=== PATIENT | female | born 1970 | race Caucasian/White ===

== ENCOUNTER → 2017-03-07 | Outpatient (CLI) | payer BC ==
--- NOTE | 2017-03-07 10:04 | DIAGNOSTIC IMAGING REPORT ---
THYROID ULTRASONOGRAPHY CLINICAL HISTORY: Thyroid nodule COMPARISON STUDY: No previous studies for comparison. FINDINGS: The relevant of thyroid measures 41 x 14 x 18 mm. There is a partially circumscribed wider than tall 6 x 5 x 4 mm hypoechoic nodule within the midpole. A few additional tiny hypoechoic nodules are visualized. The left lobe measures 36 x 12 x 16 mm. IMPRESSION: 1. Subcentimeter right lobe thyroid nodules, the largest of which measures 6 x 5 x 4 mm. Electronically signed by: Nadeem Izaguirre M.D. 03/07/2017 10:02 AM Dictated Date/Time: 03/07/2017 10:00 AM
== END | disposition home or self-care (01) ==
LOC: C.ULTR 08:57
PROVIDERS: ATTEND Nurse Practitioner
DX: E04.2 Nontoxic multinodular goiter (principal)

== ENCOUNTER 2017-03-23 10:45 | Emergency (ER) | payer BC ==
[~2017-03-23] VITALS: Ht 167.6 cm; Wt 91.1 kg
[2017-03-23 10:49] VITALS: TEMP 37; Ht 167.6 cm; Wt 91.1 kg
[2017-03-23] MEDS ORDERED: MELO7.5T5 PO (11:09)
[2017-03-23] MEDS ORDERED: GABA-113 PO (11:09)
[2017-03-23] MEDS ORDERED: EFF75 PO (11:09)
[2017-03-23] MEDS ORDERED: TRAZ50TA35 PO (11:09)
[2017-03-23] MEDS ORDERED: BACL10TA PO (11:09)
[2017-03-23] MEDS ORDERED: PRT/20 PO (11:09)
[2017-03-23] MEDS ORDERED: CIPR-255 PO (11:13)
[2017-03-23] MEDS ORDERED: PRED50TA PO (11:19)
[2017-03-23 11:26] VITALS: BP 144/86; PULSE 90; O2SAT 99
--- NOTE | 2017-03-23 20:47 | EMERGENCY ROOM VISIT NOTE ---
History First contact with patient: 11:04 Chief Complaint: RASH Stated Complaint: ITCHY RASH THAT STARTED 1600 YESTERDAY History of Present Illness The patient is a 46 year old white female who presents to the Emergency Room with complaints of a pruritic rash on her arms, face, chest, and back, that all started yesterday. Symptoms started around 4 PM. No known contact. No change in soaps, lotions, detergents, pets, plants, or foods. She was crawling in some insulation for 5 days ago but had a long sleeve shirt on. She did not have any itchiness after that. No involvement of the legs. She has been using Benadryl without improvement. No fevers or chills. She denies any other cold symptoms. No involvement of the feet or the palms. There is involvement of the dorsum of her hands. No known ill contacts. No difficulty swallowing. She denies any pain, and just has itching. Review of Systems REVIEW OF SYSTEM: HEENT: No dizziness, visual problems, hearing loss, or tinnitus. There is no difficulty swallowing and no oral lesions are present. PULMONARY: No cough, shortness of breath, sputum production or hemoptysis. CARDIOVASCULAR: No chest pain, palpitations, shortness of breath or peripheral edema. GASTROINTESTINAL: No diarrhea, constipation, nausea, vomiting, or abdominal pain. GENITOURINARY: No dysuria, frequency, urgency or nocturia. NEUROLOGIC: No weakness, muscle tenderness, epilepsy or history of neurological problems. MUSCULOSKELETAL: No history of joint tenderness/swelling. No history of arthritis or arthralgias. SKIN: No prior rashes or lesions. PSYCHIATRIC: Positive history of depression and anxiety. ENDOCRINE: No history of diabetes, thyroid disorders, or abnormal hair growth. Past Medical/Surgical History Medical history: Significant for chronic back pain, osteoarthritis, anxiety, and depression Previous surgeries: None. Family History Noncontributory. Social History Smoking Status: Current Every Day Smoker Smokeless Tobacco Use: No Alcohol Use: occasionally Drug Use: none Marital Status: single Current/Historical Medications Scheduled Ciprofloxacin Hcl (Cipro), 500 MG PO BID Gabapentin (Neurontin), 150 MG PO BID Meloxicam (Mobic), 15 MG PO DAILY Pantoprazole (Protonix), 20 MG PO BID Prednisone (Prednisone), 50 MG PO DAILY Venlafaxine Hcl (Effexor), 75 MG PO DAILY Scheduled PRN Baclofen (Lioresal), 20 MG PO DIRECTED PRN for Muscle Spasms Trazodone Hcl (Trazodone), 50 MG PO HS PRN for Sleep Physical Exam Vital Signs Date Time Temp Pulse Resp B/P (MAP) Pulse Ox O2 Delivery O2 Flow Rate FiO2 03/23/17 11:26 90 20 144/86 99 03/23/17 10:49 37.0 90 20 144/86 99 Room Air Physical Exam Gen.: Well-developed, well-nourished, middle-aged white female, in no acute distress. Sitting on a bed. Alert and oriented. Skin:Warm and dry with good turgor. Erythematous macular rash present on her arms, chest, and back. It is both right and left of midline. Small pustules are present on the back. No vesicles present anywhere else. Macules do alban with pressure. No ecchymosis. No involvement of the palms of the hands or soles of the feet. The patient is not diaphoretic. No abrasions. Heart: Heart RRR. No MGR. Peripheral pulses are 2+. Lungs: Lungs are clear to auscultation. No crackles rhonchi or wheezing. Good air movement. The patient is able to take a deep breath. HEENT: Normocephalic atraumatic. Eyes PERRLA, EOMI. No conjunctiva or scleral injection. Nares patent bilaterally without turbinate enlargement. No significant drainage. No epistaxis. Oropharynx without erythema or exudate. Uvula midline, oral mucosa moist. No lesions present. Musculoskeletal: Gross motor function of the upper and lower extremities is intact and unremarkable. Medical Decision & Procedures ED Course Patient was educated regarding today's findings. Conservative care measures were discussed. Possibility of viral rash versus contact dermatitis was discussed. It is pruritic. It is not petechial. She is already taking Benadryl without improvement. I did recommend that she had Zantac 150 mg daily until the rash resolves. Continue with the Benadryl every 6 hours. Prescription was provided for a short course of prednisone 50 mg daily for 4 days. Follow-up with her PCP as needed. Avoid scratching. Return to the ED for any acute worsening of symptoms. Medical Decision Possibility of viral illness, contact dermatitis, [id number]-mouth disease, varicella, shingles, and purpura were considered among others. Medication Reconcilliation Current Medication List: was personally reviewed by me Blood Pressure Screening Patient's blood pressure: Normal blood pressure Impression Primary Impression: Rash, skin Departure Information Dispostion Home / Self-Care Condition GOOD Prescriptions Prednisone (Prednisone) 50 Mg Tab 50 MG PO DAILY for 4 Days, #4 TAB Prov: Jose Alberto Pena,P.A. 03/23/17 Forms BENADRYL USE, WORK / SCHOOL INSTRUCTIONS, HOME CARE DOCUMENTATION FORM, IMPORTANT VISIT INFORMATION Patient Instructions [facility] Additional Instructions Benadryl 1 tablet every 6 hours as needed for itching Add Zantac 150 mg once a day until rash resolves Prednisone 50 mg once daily for 4 days Avoid scratching Follow-up with your PCP this week for reevaluation Return to the ED for any acute changes or worsening of symptoms Cool or warm showers may also improve comfort-hot showers will likely make your itching worse
== END 2017-03-23 11:26 | disposition home or self-care (01) ==
LOC: C.EDB 10:47 → C.EDC 11:26
DX: R21 Rash and other nonspecific skin eruption (principal); F17.200 Nicotine dependence, unspecified, uncomplicated; Z79.899 Other long term (current) drug therapy